=== PATIENT | female | born 1945 | race Caucasian/White ===

== ENCOUNTER 2020-12-27 14:07 | Inpatient (IN) | payer MEDICARE, OTHER ==
[~2020-12-27] VITALS: Ht 167.6 cm; Wt 65.8 kg
--- NOTE | 2020-12-27 14:30 | NUR ---
bibazar smart, +SI, on 5149 danger tos elf, "i just want to ". On room air, connected to the monitor and pulse ox. kept comfortable, will continue to monitor accordingly. Sitter at bedside for constant monitoring.
[2020-12-27] MEDS ORDERED: RISP0.2515 PO (14:46)
[2020-12-27] MEDS ORDERED: ENAL2.5T17 PO (14:46)
[2020-12-27] MEDS ORDERED: ALPR0.255 PO (14:46)
[2020-12-27] MEDS ORDERED: OMEP40CA21 PO (14:46)
[2020-12-27] MEDS ORDERED: METF-440 PO (14:46)
[2020-12-27 15:21] LABS: BASOPHILS % (AUTO) 0.5 % (0.0-2.0); EOSINOPHILS % (AUTO) 0.2 % (0.0-6.0); HEMATOCRIT 43 % (33-45); HEMOGLOBIN 14.6 g/dL (11.5-14.8); LYMPHOCYTES # (AUTO) 1.8 K/uL (0.8-4.8); LYMPHOCYTES % (AUTO) 21.3 % (20.0-44.0); MEAN CORPUSCULAR HGB CONC 34 g/dl (31.0-36.0); MEAN CORPUSCULAR VOLUME 97 fL (82-100); MONOCYTES # (AUTO) 0.6 K/uL (0.1-1.30); MONOCYTES % (AUTO) 6.9 % (2.0-12.0); NEUTROPHILS # (AUTO) 5.9 K/uL (1.8-8.9); NEUTROPHILS % (AUTO) 71.1 % (43.0-81.0); PLATELET COUNT (AUTO) 240 K/uL (150-450); RED BLOOD CELL COUNT(AUTO) 4.46 MIL/uL (4.0-5.2); WHITE BLOOD COUNT (AUTO) 8.2 K/uL (4.3-11.0)
[2020-12-27 15:29] LABS: CALCIUM, SERUM 9.4 mg/dL (8.5-10.1); CARBON DIOXIDE 23 mmol/L (21-32); CHLORIDE 99 mmol/L (98-107); CREATININE 0.5 mg/dL (0.6-1.3); GLUCOSE 141 mg/dL (74-106); POTASSIUM 3.9 mmol/L (3.5-5.1); SODIUM SERUM 135 mmol/L (136-145); UREA NITROGEN, BLOOD 11 mg/dL (7-18)
[2020-12-27 15:35] LABS: ALANINE AMINOTRANSFERASE 20 U/L (12-78); ALBUMIN 3.8 g/dL (3.4-5.0); ALCOHOL, BLOOD < 3 mg/dL (0-0); ALKALINE PHOSPHATASE 101 U/L (46-116); ASPARTATE AMINOTRANSFERASE 14 U/L (15-37); BILIRUBIN,DIRECT 0.1 mg/dL (0.0-0.2); BILIRUBIN,TOTAL 0.5 mg/dL (0.2-1.0); TOTAL PROTEIN, SERUM 7.2 g/dL (6.4-8.2)
[2020-12-27 15:41] LABS: ACETAMINOPHEN < 0 ug/ml (10-30)
--- NOTE | 2020-12-27 15:43 | NUR ---
covid swab collected and sent to lab.
[2020-12-27 16:02] LABS: BILIRUBIN,URINE NEGATIVE (NEGATIVE); COLOR,URINE YELLOW (YELLOW); LEUKOCYTE ESTERASE ,URINE TRACE (NEGATIVE); NITRITE, URINE NEGATIVE (NEGATIVE); PROTEIN,URINE NEGATIVE (NEGATIVE); UGLUCOSE NEGATIVE (NEGATIVE); UROBILINOGEN,URINE 0.2 EU/dL (0.2)
[2020-12-27 16:12] LABS: RBC,URINE 0-2 /HPF (0-2)
[2020-12-27 16:13] LABS: BACTERIA,URINE Rare /HPF (None Seen); SQUAMOUS EPITHELIAL CELL,UR Few /HPF (None Seen)
[2020-12-27] MEDS ORDERED: IV D5/0.45 NACL 1,000 ML IV ONE ×2 (16:30→17:00)
--- NOTE | 2020-12-27 16:47 | NUR ---
CALLED BREANNA [phone]
[2020-12-27] MEDS ORDERED: CEFTRIAXONE 1GM BAG (ER ONLY) 50 ML IV ONE (17:02)
[2020-12-27] MEDS ORDERED: CEFTRIAXONE 1GM BAG (ER ONLY) 1 GM/50 ML PIGGYBACK IV ONE (17:30)
--- NOTE | 2020-12-27 21:31 | NUR ---
RESTING COMFORTABLY. VSS.
--- NOTE | 2020-12-27 21:56 | NUR ---
PER REFRIGERATION MECHANIC HELPER ALLY, CLINICALS HAVE BEEN FAXED TO [facility] FACILITIES AND WE ARE AWAITING UPDATES.
[2020-12-28] MEDS ORDERED: CEPH500T PO (06:43)
[2020-12-28] MEDS ORDERED: METFORMIN 500 MG TABLET ONE (09:20)
[2020-12-28] MEDS ORDERED: CEPHALEXIN MONOHYDRATE 250 MG CAPSULE PO ONE (09:20)
[2020-12-28] MEDS: CEPHALEXIN MONOHYDRATE 250 MG CAPSULE PO SCH ×3 (09:24→17:55)
[2020-12-28] MEDS: METFORMIN 500 MG TABLET PO SCH ×2 (09:25→17:55)
--- NOTE | 2020-12-28 10:00 | NUR ---
NURSING SUP GAVE GPS BED 213-1.
--- NOTE | 2020-12-28 10:30 | NUR ---
IV removed. Catheter intact and site benign. Pressure and 4x4 applied to site. No bleeding noted.
--- NOTE | 2020-12-28 12:00 | NUR ---
RN-CO: NOTIFIED DR MARQUEZ ABOUT THIS ADMISSION AND GAVE HIS ADMITTING ORDERS, NOTED AND CARRIED OUT.
--- NOTE | 2020-12-28 12:03 | NUR ---
report given to moon mcbride for caroline
[2020-12-28] MEDS ORDERED: LORAZEPAM 0.5 MG TABLET PO PRN (12:30)
[2020-12-28] MEDS ORDERED: ACETAMINOPHEN 325 MG TABLET PO PRN (12:30)
[2020-12-28] MEDS ORDERED: BLOOD SUGAR DIAGNOSTIC 1 EACH STRIP IN ONE (12:30)
[2020-12-28] MEDS ORDERED: ZOLPIDEM TARTRATE 5 MG TABLET PO PRN (12:30)
[2020-12-28] MEDS ORDERED: MAGNESIUM HYDROXIDE 30 ML UDC PO PRN (12:30)
[2020-12-28] MEDS ORDERED: MAG HYDROX/AL HYDROX/SIMETH 30 ML UDC PO PRN (12:30)
--- NOTE | 2020-12-28 12:30 | NUR ---
ADMITTED A 76 Y/O FEMALE FROM HOME AND EVALUATED FROM [facility]. ON 5150 HOLD FOR DTS AND GD. PER 5150 HOLD, PATIENT STATED "I AM TIRED AND DOESN'T WANT TO CONTINUE". . PATIENT MEDICAL HISTORY OF HTN ,DM ,GERD .ON FACE TO FACE ASSESSMENT PATIENT APPEARED DEPRESSED ,FLAT AFFECT ,ALERT AND ORIENTED X 3, LOW ENERGY PATIENT STATED "I HAVE SEVERE DEPRESSION ,I CAN'T SLEEP AT [place] I NEED HELP".HEAD TO TOE ASSESSMENT DONE SKIN CLEAR . NO SOB, NO ACUTE DISTRESS, BREATHING EVEN AND UNLABORED, NO S/S OF PAIN AND DISCOMFORT. PATIENT IS UNDER THE CARE OF DR. COELLO AND DR. ANDERSON . BELONGINGS COLLECTED FOR CONTRABAND CHECK. NOTIFIED DR. ANDERSON TO RECONCILE MEDICATION. NOTIFIED RESPONSIBLE DEMOCRAT OF THE ADMISSION. KEPT CLEAN, DRY AND COMFORTABLE. WILL CONTINUE TO MONITOR Q15 MINUTES FOR SAFETY.
[2020-12-28 14:47] VITALS: BP 115/79
--- NOTE | 2020-12-28 15:41 | NUR ---
DRU Initial Discharge Plan: Patient currently lives with her sister in law Roma ([phone]) located at [address] [place] [address]. Pt would want to return back home upon discharge. DRU will work with the MD and treatment team to help coordinate appropriate discharge.
--- NOTE | 2020-12-28 15:42 | NUR ---
UR Note: Auth#[id number] obtained from Bri with [facility] [phone] . Per intake Mumtaz, pt is authorized for 3 days of 72 hour hold and will require a clinical review on third day.
[2020-12-28 16:00] VITALS: BP 123/67
--- NOTE | 2020-12-28 16:00 | NUR ---
DRU Family Contact: DRU spoke with patient's son Jesus ([phone]) who stated that he is the DPOA and will send documents to this SW. Jesus shared that pt lives at home located at [address] [place] [address] with pt's sister in law Roma ([phone]). Son expressed that pt has been suffering with mental illness for many years. He expressed that she was hospitalized for depression when she was in her 20's and also was hospitalized 26 years ago for depression. He shared that pt was a hospital in [place] a month ago and felt that pt was improving, however, reported that she was having a bad day yesterday (12/27/2020) and was extremely depressed. SW explained pt's treatment plan/discharge plan and educated pt on 5150/5250 hold.
[2020-12-28] MEDS ORDERED: DEXTROSE 50%-WATER 50 ML DISP.SYRIN IV PRN (19:30)
[2020-12-28] MEDS ORDERED: *INSULIN REGULAR(HUMULIN R)HUM 100 UNIT/ML VIAL SQ PRN (19:30)
--- NOTE | 2020-12-28 19:30 | NUR ---
RN NOTES RECEIVED PT FROM AM SHIFT RN FOR JAYSHREE. PT IN NO ACUTE DISTRESS AT THIS TIME. NO SOB NOTED. PATIENT'S BREATHING IS EVEN AND UNLABORED. SAFETY PRECAUTIONS IN PLACE. BED IN LOW LOCKED POSITION. WILL CONTINUE TO MONITOR Q15MIN ROUNDS FOR SAFETY AND BEHAVIOR.
[2020-12-28 20:00] VITALS: BP 110/60
[2020-12-28] MEDS: BLOOD SUGAR DIAGNOSTIC 1 EACH STRIP VI SCH (22:36)
[2020-12-29 06:56] LABS: CHOLESTEROL 165 mg/dL (<200); HDL CHOLESTEROL 40 mg/dL (40-60); LDL 104 mg/dL (0-99); TRIGLYCERIDES 122 mg/dL (30-150)
--- NOTE | 2020-12-29 06:57 | NUR ---
RN NOTES ENDORSED PT IN STABLE CONDITION TO AM SHIFT RN FOR JAYSHREE.
[2020-12-29 06:58] LABS: CALCIUM, SERUM 8.8 mg/dL (8.5-10.1); CREATININE 0.6 mg/dL (0.6-1.3); POTASSIUM 4.1 mmol/L (3.5-5.1)
[2020-12-29 06:59] LABS: ALBUMIN 3.4 g/dL (3.4-5.0); BILIRUBIN,TOTAL 0.5 mg/dL (0.2-1.0); TOTAL PROTEIN, SERUM 6.8 g/dL (6.4-8.2)
[2020-12-29] MEDS: BLOOD SUGAR DIAGNOSTIC 1 EACH STRIP VI SCH ×4 (07:43→21:33)
[2020-12-29 08:00] VITALS: BP 117/65
--- NOTE | 2020-12-29 08:18 | NUR ---
UR Note: Auth#[id number]. DRU received a call from rehabilitation caseworker Soni who requested clinicals for pt. SW sent clinicals that were available and left her a voicemail ([phone]). .
--- NOTE | 2020-12-29 08:37 | NUR ---
DPOA Document: Patient's son Jesus ([phone]) sent DPOA document paperworks and placed in the chart.
[2020-12-29] MEDS: INSULIN REGULAR, HUMAN 100 UNIT/ML 3 ML VIAL SQ PRN ×3 (08:39→17:27)
[2020-12-29] MEDS: METFORMIN 500 MG TABLET PO SCH ×2 (08:40→16:53)
[2020-12-29] MEDS: ENALAPRIL MALEATE (5 MG) 5 MG TABLET PO SCH (08:40)
[2020-12-29] MEDS: PANTOPRAZOLE 40 MG TABLET.DR PO SCH (08:40)
[2020-12-29] MEDS: CEPHALEXIN MONOHYDRATE 250 MG CAPSULE PO SCH ×3 (08:41→16:53)
--- NOTE | 2020-12-29 11:06 | NUR ---
service secretary received a call from Dr. Hart to take out his name from the board and give his pt. to [employer]. Contacted Dr. Castillo to see the pt.
--- NOTE | 2020-12-29 12:13 | NUR ---
DRU Coordination of Care: Patient referred for intake evaluation (psychiatry) at [facility] located at [address] [place] [address]; ([phone]) on January 05 at 9:30AM via telehealth.
[2020-12-29] MEDS: FLUOXETINE HCL 20 MG CAPSULE PO SCH (13:16)
[2020-12-29 16:00] VITALS: BP 101/55
[2020-12-29 20:00] VITALS: BP 110/63
[2020-12-29] MEDS ORDERED: TRAZODONE 50 MG TABLET PO SCH (22:00)
[2020-12-30] MEDS: BLOOD SUGAR DIAGNOSTIC 1 EACH STRIP VI SCH ×2 (07:53→11:49)
[2020-12-30 08:00] VITALS: BP 109/63
[2020-12-30] MEDS: CEPHALEXIN MONOHYDRATE 250 MG CAPSULE PO SCH ×2 (08:37→13:05)
[2020-12-30] MEDS: PANTOPRAZOLE 40 MG TABLET.DR PO SCH (08:37)
[2020-12-30] MEDS: METFORMIN 500 MG TABLET PO SCH (08:37)
[2020-12-30] MEDS: FLUOXETINE HCL 20 MG CAPSULE PO SCH (08:37)
[2020-12-30 08:38] VITALS: BP 109/63
[2020-12-30] MEDS: ENALAPRIL MALEATE (5 MG) 5 MG TABLET PO SCH (08:38)
--- NOTE | 2020-12-30 08:38 | NUR ---
UR Note: Auth#[id number]. SS spoke with Soni and requested for aftercare appointments. SW also faxed patient's updated clinicals. ([phone]). .
[2020-12-30] MEDS: INSULIN REGULAR, HUMAN 100 UNIT/ML 3 ML VIAL SQ PRN ×2 (08:42→12:17)
--- NOTE | 2020-12-30 10:43 | NUR ---
UR Note: Auth#[id number]. SS spoke with Soni and stated to contact pt's son LINDA Lee ([phone]) for appointments for psychiatry and home health. SW also faxed patient's updated clinicals. ([phone]). .
--- NOTE | 2020-12-30 10:43 | NUR ---
SW Discharge Plan: Patient will be discharged back home located at [address] [place] [address] and lives with her sister in law Roma ([phone]). Patients son LINDA Lee ([phone]) will clam picker pt at 1PM. Patient appears alert and oriented x3 and appeared happy to being discharged. Patient denies suicidal or homicidal ideation. Patient denies visual/auditory hallucinations. Patient will follow up with (Heavy Mobile Equipment Operator) Dr. Art located at [address] [place], [place] [address], [place] [address]; ([phone]) on January 05 at 4PM. Patient referred for intake evaluation (psychiatry) at [facility] located at [address] [place] [address]; ([phone]) on January 05 at 9:30AM via telehealth. Patients caser up Bernie ([phone]) will contact pt in regard to getting an appointment for psychiatry and home health. Patient presents with euthymic mood and congruent affect.
--- NOTE | 2020-12-30 11:42 | NUR ---
Dr. Thomas came and spoke to the pt. and after taking Dr. Thomas gave an order to D/C hold and D/C home and to follow up with psych and medical doctors.
--- NOTE | 2020-12-30 13:07 | NUR ---
RN-DISCHARGED NOTES PATIENT HAD A DISCHARGED ORDER FROM DR. MARQUEZ ( PSYCHIATRIST), (OUTSIDE DELIVERER) MEDICALLY CLEARED PATIENT FOR DISCHARGE. ALL DISCHARGE MEDICATIONS WAS REVIEWED WITH THE PATIENT WITH UNDERSTANDING. PATIENT DID NOT VERBALIZE SI/HI,DENIES VISUAL/AUDITORY HALLUCINATIONS AT THE TIME OF DISCHARGED. PATIENT DID SIGN ALL DISCHARGE PAPERS. INSTRUCTED PATIENT TO FOLLOW UP WITH PCP IN A WEEK OR NEEDED. CALL 911 OR GO TO THE NEAREST EMERGENCY ROOM IN CASE OR EMERGENCY. PATIENT REFUSED FLU VACCINE AND FULL BODY ASSESSMENT PRIOR TO DISCHARGE. PATIENT LEFT THE UNIT IN STABLE CONDITION A/O X3 AMBULATORY USING OWN CANE.ALL BELONGINGS WAS GIVEN BACK TO THE PATIENT. CARPET CLEANING TECHNICIAN BY SON/LINDA MATHEW VIA PRIVATE CAR. SHE WAS ASSISTED BY ONE [employer] IN THE LOBBY FOR SAFETY.
== END 2020-12-30 13:00 | disposition home or self-care (01) | DRG 885 ==
LOC: ER 14:22 → GPS 12-28 11:48 → EDBD 12-28 11:48 → GPS 12-28 19:48
PROVIDERS: ADMIT Psychiatry & Neurology Psychiatry; ATTEND Internal Medicine
DX: F33.2 Major depressive disorder, recurrent severe without psychotic features (principal); E87.1 Hypo-osmolality and hyponatremia; N39.0 Urinary tract infection, site not specified; F41.9 Anxiety disorder, unspecified; E11.9 Type 2 diabetes mellitus without complications; I10 Essential (primary) hypertension; Z79.84 Long term (current) use of oral hypoglycemic drugs; Z20.822 Contact with and (suspected) exposure to COVID-19
CPT/HCPCS: 36415; 80048-TC; 80053-TC; 80061-TC; 80076-TC; 81001; 82962-TC; 85025-TC; 87081-TC; 87086-TC; C9803; G0480; J0696; J1815; J3490